=== PATIENT | male | born 1995 | race Caucasian/White ===

== ENCOUNTER 2018-04-09 15:07 | Observation (INO) | payer BC, MEDICAID ==
[2018-04-09] MEDS ORDERED: 0.9 % SODIUM CHLORIDE 1,000 ML BAG IV ONE (16:03)
[2018-04-09] MEDS ORDERED: IBUPROFEN 600 MG TABLET PO ONE (16:03)
--- NOTE | 2018-04-09 16:03 | Emergency Department Record ---
History of Present Illness - General Chief Complaint: Headache Migraine Stated Complaint: LOWER BACK PAIN,HEADACHE,VOMITING Time Seen by Provider: 04/09/18 15:44 Source: Patient, RN notes reviewed Mode of Arrival: Ambulatory - History of Present Illness Initial Comments: headache and fever and sore throat, denies a cough complaining of lower back pain . No dysuria , patient always has loose stools and one stool today and yesterday. patient with other relatives who have the same symtoms. MD Complaint: Headache Onset/Timin -: Hour(s) Onset Description: Sudden Severity scale (1-10): 9 Quality: Aching, Sharp Consistency: Constant Context: Close contacts with similar symptoms, Other Associated Symptoms: Fever, Nausea, Neck stiffness, Photophobia, Weakness Treatments Prior to Arrival: Acetaminophen Treatment Prior to Arrival Comment:: 325 - Related Data Home Medications Medication Instructions Recorded Confirmed Last Taken No Home Med [NO HOME MEDS] 04/09/18 04/09/18 Unknown Allergies Allergy/AdvReac Type Severity Reaction Status Date / Time No Known Drug Allergies Allergy Verified 04/09/18 15:37 Travel Screening - Travel/Exposure Within Last 30 Days Have you traveled within the last 30 days?: No - Travel/Exposure Within Last Year Have you traveled outside the [place] in the last year?: No - Additonal Travel Details Have you been exposed to anyone with a communicable illness?: No - Travel Symptoms Symptom Screening: None Review of Systems Reviewed: No additional complaints except as noted below Constitutional: Reports: As per HPI, Fever. Denies: Chills, Malaise, Night sweats, Weakness, Weight change Eyes: Reports: As per HPI. Denies: Eye discharge, Eye pain, Photophobia, Vision change ENT: Reports: As per HPI, Throat pain. Denies: Congestion, Dental pain, Ear pain, Epistaxis, Hearing loss Respiratory: Reports: As per HPI. Denies: Cough, Dyspnea, Hemoptysis, Stridor, Wheezes Cardiovascular: Reports: As per HPI. Denies: Arrhythmia, Chest pain, Dyspnea on exertion, Edema, Murmurs, Orthopnea, Palpitations, Paroxysmal nocturnal dyspnea, Rheumatic Fever, Syncope Endocrine: Reports: As per HPI. Denies: Fatigue, Heat or cold intolerance, Polydipsia, Polyuria Gastrointestinal: Reports: As per HPI. Denies: Abdominal pain, Constipation, Diarrhea, Hematemesis, Hematochezia, Melena, Nausea, Vomiting Genitourinary: Reports: As per HPI. Denies: Dysuria, Frequency, Hematuria, Incontinence, Retention, Testicular pain, Testicular mass, Urgency Musculoskeletal: Reports: As per HPI. Denies: Arthralgia, Back pain, Gout, Joint swelling, Myalgia, Neck pain Skin: Reports: As per HPI. Denies: Bruising, Change in color, Change in hair/ nails, Lesions, Pruritus, Rash Neurological: Reports: As per HPI. Denies: Abnormal gait, Confusion, Headache, Numbness, Paresthesias, Seizure, Tingling, Tremors, Vertigo, Weakness Psychiatric: Reports: As per HPI. Denies: Anxiety, Auditory hallucinations, Depression, Homicidal thoughts, Suicidal thoughts, Visual hallucinations Hematological/Lymphatic: Reports: As per HPI. Denies: Anemia, Blood Clots, Easy bleeding, Easy bruising, Swollen glands Past Medical History - SOCIAL HISTORY Smoking Status: Never smoker Alcohol Use: Rare Drug Use: None - RESPIRATORY Hx Respiratory Disorders: Yes Hx Asthma: Yes - CARDIOVASCULAR Hx Cardio Disorders: No - NEURO Hx Neuro Disorders: Yes Hx Dizziness: Yes Hx Headaches: Yes - GI Hx GI Disorders: Yes Hx Reflux: Yes - Hx Genitourinary Disorders: No - ENDOCRINE Hx Endocrine Disorders: No - MUSCULOSKELETAL Hx Musculoskeletal Disorders: No - PSYCH Hx Psych Problems: No - HEMATOLOGY/ONCOLOGY Hx Hematology/Oncology Disorders: No Family Medical History Any Significant Family History?: No Physical Exam - General General Appearance: Alert, Oriented x3, Cooperative, No acute distress - Head Head exam: Normal inspection - Eye Eye exam: Normal appearance, PERRL Pupils: Normal accommodation - ENT ENT exam: Normal exam, Mucous membranes moist, Normal external ear exam, Normal orophraynx, TM's normal bilaterally Ear exam: Normal external inspection. negative: External canal tenderness Nasal Exam: Normal inspection. negative: Discharge, Sinus tenderness Mouth exam: Normal external inspection, Tongue normal Teeth exam: Normal inspection. negative: Dental caries Throat exam: Normal inspection. negative: Tonsillar erythema, Tonsillar exudate - Neck Neck exam: Normal inspection, Full ROM. negative: Lymphadenopathy, Meningismus , Tenderness - Respiratory Respiratory exam: Normal lung sounds bilaterally. negative: Respiratory distress - Cardiovascular Cardiovascular Exam: Regular rate, Normal rhythm, Normal heart sounds - GI/Abdominal GI/Abdominal exam: Soft, Normal bowel sounds. negative: Tenderness - Rectal Rectal exam: Deferred - exam: Deferred - Extremities Extremities exam: Normal inspection, Full ROM, Normal capillary refill. negative: Tenderness - Back Back exam: Reports: Normal inspection, Full ROM. Denies: Muscle spasm, Rash noted, Tenderness - Neurological Neurological exam: Alert, Normal gait, Oriented X3, Reflexes normal - Psychiatric Psychiatric exam: Normal affect, Normal mood - Skin Skin exam: Dry, Intact, Normal color, Warm Course Vital Signs 04/09/18 15:25 Temperature 101.1 F H - Reevaluation(s) Reevaluation #1: Discussed case with Sara and will admit to Dr. Shirley service 04/09/18 18:33 Medical Decision Making - Data Complexity MDM Data: Labs Ordered and/or Reviewed, X-Ray Ordered and/or Reviewed ( infiltrate left lower lobe slight) - Lab Data Result diagrams: 04/09/18 16:15 04/09/18 16:15 Disposition Clinical Impression: Pneumonia Qualifiers: Pneumonia type: due to unspecified organism Laterality: left Lung location: lower lobe of lung Qualified Code(s): J18.1 - Lobar pneumonia, unspecified organism Decision to Admit: Admit from ER Condition: (1) Good Forms: Patient Portal Access Time of Disposition: 18:33 Quality - Quality Measures Quality Measures: N/A - Blood Pressure Screening Does Patient Have Any of the Following: No Blood Pressure Classification: Pre-Hypertensive BP Reading Systolic Measurement: 127 Diastolic Measurement: 80 Screening for High Blood Pressure: < Pre-Hypertensive BP, F/U Documented > [ [id number]] Pre-Hypertensive Follow-up Interventions: Referral to alternative/primary care provider.
[2018-04-09 16:28] LABS: HEMATOCRIT 46.6 % (42.0-52.0); HEMOGLOBIN 16.4 gm/dl (14.0-18.0); MEAN CELL VOLUME 79.3 fl (81-97); MEAN CORPUSCULAR HGB CONC 35.2 g/dl (32-36); MEAN PLATELET VOLUME 11.7 fl (7.4-10.4); PLATELET COUNT 144 K/uL (130-400); RED BLOOD COUNT 5.88 M/uL (4.40-5.70); RED CELL DISTRIBUTION WIDTH 12.9 % (11.5-14.5); WHITE BLOOD COUNT W/O DIFF 8.6 K/uL (4.2-12.2)
[2018-04-09 16:31] LABS: MEAN CORPUSCULAR HEMOGLOBIN 27.8 pg (27-33)
[2018-04-09 16:38] LABS: BLOOD UREA NITROGEN 11 mg/dL (6-20); CREATININE 1.2 mg/dL (0.7-1.2); EST GLOMERULAR FILTRATION RATE > 60 mL/min
[2018-04-09 16:39] LABS: TOTAL PROTEIN 7.9 g/dL (6.6-8.7)
[2018-04-09 16:41] LABS: GLUCOSE,RANDOM 127 mg/dL (74-109)
[2018-04-09 16:43] LABS: ALT/SGPT 25 U/L (<41)
[2018-04-09 16:44] LABS: ALKALINE PHOSPHATASE 82 U/L (40-129); AST/SGOT 28 U/L (10.0-50.0)
[2018-04-09 16:45] LABS: BILIRUBIN,DIRECT < 0.2 mg/dL (0-0.3)
[2018-04-09 16:50] LABS: URINE APPEARANCE CLEAR; URINE BILIRUBIN NEGATIVE (NEGATIVE); URINE BLOOD NEGATIVE (NEGATIVE); URINE COLOR YELLOW; URINE GLUCOSE (UA) NEGATIVE (NEGATIVE); URINE KETONE 15 mg/dL (NEGATIVE); URINE LEUKOCYTE ESTERASE NEGATIVE (NEGATIVE); URINE NITRITE NEGATIVE (NEGATIVE); URINE PROTEIN NEGATIVE (NEGATIVE)
[2018-04-09] MEDS ORDERED: CEFTRIAXONE SODIUM 1 GM in 0.9 % SODIUM CHLORIDE 100ML 100 ML IVPB ONE (18:18)
[2018-04-09] MEDS ORDERED: IBUPROFEN 600 MG TABLET PO PRN (19:59)
[2018-04-09] MEDS ORDERED: ACETAMINOPHEN 500 MG TABLET PO PRN (19:59)
[2018-04-09] MEDS ORDERED: CEFTRIAXONE SODIUM 1 GM in 0.9 % SODIUM CHLORIDE 100ML 100 ML IVPB SCH (19:59)
[2018-04-09] MEDS: AZITHROMYCIN 500 MG TABLET PO SCH (20:31)
[2018-04-09] MEDS: 0.9 % SODIUM CHLORIDE 1000ML 1,000 ML IV PRN (20:32)
[2018-04-09] MEDS ORDERED: CALCIUM CARBONATE 500 MG TAB.CHEW PO PRN (20:34)
[2018-04-09] MEDS ORDERED: ONDANSETRON HCL IV 4 MG/2 ML VIAL IVP PRN (20:34)
[2018-04-09] MEDS ORDERED: MELATONIN 5 MG TABLET PO SCH (22:00)
[2018-04-10] MEDS: 0.9 % SODIUM CHLORIDE 1000ML 1,000 ML IV PRN ×2 (03:51→12:09)
[2018-04-10 06:16] LABS: BASO % 0.1 % (0-6); EOS % 0.1 % (0-6); HEMATOCRIT 41.9 % (42.0-52.0); HEMOGLOBIN 14.3 gm/dl (14.0-18.0); LYMPH % 3.3 % (16-45); MEAN CELL VOLUME 80.3 fl (81-97); MEAN CORPUSCULAR HEMOGLOBIN 27.4 pg (27-33); MEAN CORPUSCULAR HGB CONC 34.1 g/dl (32-36); MEAN PLATELET VOLUME 11.8 fl (7.4-10.4); MONO % 7.2 % (0-9); PLATELET COUNT 111 K/uL (130-400); RED BLOOD COUNT 5.22 M/uL (4.40-5.70); RED CELL DISTRIBUTION WIDTH 13.1 % (11.5-14.5); WHITE BLOOD COUNT W/O DIFF 11.5 K/uL (4.2-12.2)
[2018-04-10 06:46] LABS: BLOOD UREA NITROGEN 18 mg/dL (6-20); CREATININE 1.3 mg/dL (0.7-1.2); EST GLOMERULAR FILTRATION RATE > 60 mL/min; GLUCOSE,RANDOM 149 mg/dL (74-109)
--- NOTE | 2018-04-10 07:10 | RADIOLOGY REPORT ---
EXAM: CHEST, TWO VIEWS HISTORY: DIFFICULTY BREATHING, FEVER. TECHNIQUE: Frontal and lateral views of the chest were performed. FINDINGS: The heart is normal. There is a subtle infiltrate in the left lower lobe. No pleural effusion. The osseous structures are normal. IMPRESSION: SUBTLE INFILTRATE LEFT LOWER LOBE. JOB NUMBER: [id number] [facility]
--- NOTE | 2018-04-10 07:14 | CT SCAN REPORT ---
EXAM: CT OF THE BRAIN WITHOUT CONTRAST HISTORY: HEADACHE AND VOMITING. TECHNIQUE: Sequential axial images were obtained from the foramen magnum to the vertex without contrast administration. FINDINGS: No large territorial infarct, hemorrhage, mass effect, or midline shift. No extraaxial fluid collection. The orbits, paranasal sinuses, and mastoid air cells are normal. No depressed skull fracture. IMPRESSION: NO ACUTE INTRACRANIAL ABNORMALITY IS APPRECIATED. JOB NUMBER: [id number] [facility]
[2018-04-10] MEDS ORDERED: CEFTRIAXONE 1GM/50ML BAG 1 GM/50 ML BAG IVPB SCH (08:00)
[2018-04-10] MEDS ORDERED: 0.9 % SODIUM CHLORIDE 1000ML 1,000 ML IV ONE (09:35)
[2018-04-10] MEDS ORDERED: ONDANSETRON 4 MG ODT TABLET SL PRN (09:43)
[2018-04-10] MEDS: AZITHROMYCIN 500 MG TABLET PO SCH (10:00)
[2018-04-10] MEDS ORDERED: CALCIUM CARBONATE 500 MG TAB.CHEW PO SCH (10:00)
[2018-04-10] MEDS ORDERED: ENOXAPARIN 40 MG/0.4 ML SYR SQ SCH (10:00)
--- NOTE | 2018-04-10 10:13 | History & Physical ---
History of Present Illness - Date of Service Date of Service for History & Physical: 04/10/18 - History of Present Illness Admitting Diagnosis: pneumonia History of Present Illness: Linus Gonzalez is a 23 y.o. male who presented to the ED with on 2017 with c/o headache, fever, lower back pain and sore throat that started the day before. Denied cough, priyank or dysuria. CXR in ED showed subtle infiltrate to LLL. Preliminary blood cultures x [address] negative.Reported that he always has loose stools, last BM on 04/09/2018. Pt reports that he has 2 relatives, whom he was with this past Saturday, who have been hospitalized with the same symptoms. Negative PMHx. Pt denied tobacco or recreational drug use. 04/10/2018 1000 Pt reports that he is feeling a better, headache and back pain have subsided. Denies nausea after receiving Zofran and was able to eat [employer] this morning. Pt questioning when he will be able to discharge. HR elevated in 130s with BP 90s/60s. Labs: Creatinine 1.3, Calcium 8.1, WBC 11.5. 0.9% 1L bolus x 1 to be given. IV medications changed to oral route. TUMS ordered for decreased Calcium level. Discharge will be evaluated later this afternoon if HR has returned to baseline and pt able to tolerate oral medications. Travel Screening - Travel/Exposure Within Last 30 Days Have you traveled within the last 30 days?: No - Travel/Exposure Within Last Year Have you traveled outside the [place] in the last year?: No - Additonal Travel Details Have you been exposed to anyone with a communicable illness?: No - Travel Symptoms Symptom Screening: None Review of Systems Constitutional: Reports: As per HPI. Denies: Chills, Malaise, Night sweats, Weakness, Weight change Eyes: Reports: As per HPI. Denies: Eye discharge, Eye pain, Photophobia, Vision change ENT: Reports: As per HPI, Throat pain. Denies: Congestion, Dental pain, Ear pain, Epistaxis, Hearing loss Respiratory: Reports: As per HPI. Denies: Cough, Dyspnea, Hemoptysis, Stridor, Wheezes Cardiovascular: Reports: As per HPI. Denies: Arrhythmia, Chest pain, Dyspnea on exertion, Edema, Murmurs, Orthopnea, Palpitations, Paroxysmal nocturnal dyspnea, Rheumatic Fever, Syncope Endocrine: Reports: As per HPI, Fatigue. Denies: Heat or cold intolerance, Polydipsia, Polyuria Gastrointestinal: Reports: As per HPI, Nausea ("Nauseated prior to receiving Zofran"). Denies: Abdominal pain, Constipation, Diarrhea, Hematemesis, Hematochezia, Melena, Vomiting Genitourinary: Reports: As per HPI. Denies: Dysuria, Frequency, Hematuria, Incontinence, Retention, Testicular pain, Testicular mass, Urgency Musculoskeletal: Reports: As per HPI. Denies: Arthralgia, Back pain, Gout, Joint swelling, Myalgia, Neck pain Skin: Reports: As per HPI. Denies: Bruising, Change in color, Change in hair/ nails, Lesions, Pruritus, Rash Neurological: Reports: As per HPI. Denies: Abnormal gait, Confusion, Headache, Numbness, Paresthesias, Seizure, Tingling, Tremors, Vertigo, Weakness Psychiatric: Reports: As per HPI. Denies: Anxiety, Auditory hallucinations, Depression, Homicidal thoughts, Suicidal thoughts, Visual hallucinations Hematological/Lymphatic: Reports: As per HPI. Denies: Anemia, Blood Clots, Easy bleeding, Easy bruising, Swollen glands Past Medical History - SOCIAL HISTORY Smoking Status: Never smoker Alcohol Use: Rare Drug Use: None - RESPIRATORY Hx Respiratory Disorders: Yes Hx Asthma: Yes - CARDIOVASCULAR Hx Cardio Disorders: No - NEURO Hx Neuro Disorders: Yes Hx Dizziness: Yes Hx Headaches: Yes - GI Hx GI Disorders: Yes Hx Reflux: Yes - Hx Genitourinary Disorders: No - ENDOCRINE Hx Endocrine Disorders: No - MUSCULOSKELETAL Hx Musculoskeletal Disorders: No - PSYCH Hx Psych Problems: No - HEMATOLOGY/ONCOLOGY Hx Hematology/Oncology Disorders: No Family Medical History Any Significant Family History?: No H&P Meds/Allergies - Allergies Allergies: Allergies Allergy/AdvReac Type Severity Reaction Status Date / Time No Known Drug Allergies Allergy Verified 04/09/18 15:37 - Home Medications Home Medications Medication Instructions Recorded Confirmed Last Taken No Home Med [NO HOME MEDS] 04/09/18 04/09/18 Unknown - Active Medications Active Medications: Current Medications Acetaminophen (Tylenol 500mg Tab) 1,000 mg PO Q6H PRN PRN Reason: ANALGESIA Azithromycin (Zithromax) 500 mg PO DAILY [facility] Last Admin: 04/09/18 20:31 Dose: 500 mg Calcium Carbonate/Glycine (Tums) 500 mg PO BID [facility] Cefdinir (Cefdinir) 300 mg PO BID [facility] Stop: 04/14/18 21:01 Enoxaparin Sodium (Lovenox) 40 mg SQ DAILY [facility] Sodium Chloride () 1,000 mls @ 125 mls/hr IV .Q8H PRN PRN Reason: LARGE VOLUME IV Last Admin: 04/10/18 03:51 Dose: 125 mls/hr Sodium Chloride () 1,000 mls @ 500 mls/hr IV .Q2H ONE Stop: 04/10/18 11:34 Ibuprofen (Motrin 600mg) 600 mg PO Q6H PRN PRN Reason: ANALGESIA Last Admin: 04/10/18 08:04 Dose: 600 mg Melatonin (Melatonin) 5 mg PO QHS [facility] Last Admin: 04/09/18 22:35 Dose: 5 mg Ondansetron HCl (Zofran Odt) 4 mg SL Q8H PRN PRN Reason: NAUSEA/VOMITING Physical Exam - Vital Signs Vital Signs: Vital Signs - Last 24 Hrs Temp Pulse Pulse Pulse Resp BP BP 04/10/18 09:00 136 H 18 04/10/18 04:00 97 F L 105 H 18 97/69 04/10/18 02:00 101 H 18 98/59 04/10/18 00:00 98.2 F 124 H 18 92/51 04/09/18 20:00 97.2 F L 105 H 18 122/74 04/09/18 19:49 118 H 16 04/09/18 19:22 97.9 F 102 H 16 127/87 04/09/18 18:20 98.5 F 04/09/18 16:16 118 H 20 127/80 04/09/18 15:25 101.1 F H Pulse Ox 04/10/18 09:00 04/10/18 04:00 98 04/10/18 02:00 97 04/10/18 00:00 98 04/09/18 20:00 97 04/09/18 19:49 04/09/18 19:22 100 04/09/18 18:20 04/09/18 16:16 04/09/18 15:25 - General General Appearance: Alert, Oriented x3, Cooperative, No acute distress - Head Head exam: Normal inspection - Eye Eye exam: Normal appearance, PERRL Pupils: Normal accommodation - ENT ENT exam: Mucous membranes moist Nasal Exam: negative: Discharge, Sinus tenderness Mouth exam: Normal external inspection Teeth exam: negative: Dental caries - Neck Neck exam: Normal inspection, Full ROM. negative: Lymphadenopathy, Meningismus , Tenderness - Respiratory Respiratory exam: Normal lung sounds bilaterally. negative: Respiratory distress - Cardiovascular Cardiovascular Exam: Regular rate, Normal rhythm, Normal heart sounds - GI/Abdominal GI/Abdominal exam: Soft, Normal bowel sounds. negative: Tenderness - Rectal Rectal exam: Deferred - exam: Deferred - Extremities Extremities exam: Normal inspection, Full ROM, Normal capillary refill. negative: Tenderness - Back Back exam: Reports: Normal inspection, Full ROM. Denies: Muscle spasm, Rash noted, Tenderness - Neurological Neurological exam: Alert, Oriented X3 - Psychiatric Psychiatric exam: Normal affect, Normal mood - Skin Skin exam: Dry, Intact, Normal color, Warm Results - Labs Result Diagrams: 04/10/18 06:10 04/10/18 06:10 Labs Last 24 Hours: Laboratory Results - last 24 hr 04/09/18 04/09/18 04/09/18 16:15 16:15 16:20 WBC 8.6 RBC 5.88 H Hgb 16.4 Hct 46.6 MCV 79.3 L MCH 27.8 MCHC 35.2 RDW 12.9 Plt Count 144 MPV 11.7 H Neutrophils % 82.0 H Band Neutrophils % 6.0 H Lymphocytes % Monocytes % Eosinophils % Not Reportable Basophils % Not Reportable Lymphocytes 6.0 L Monocytes 6.0 Basophils Eosinophil Count Sodium 136 Potassium 3.6 Chloride 93 L Carbon Dioxide 25.0 Anion Gap 18.0 H BUN 11 Creatinine 1.2 Estimated GFR > 60 Random Glucose 127 H Calcium 9.6 Total Bilirubin 1.00 Direct Bilirubin < 0.2 AST 28 ALT 25 Alkaline Phosphatase 82 Total Protein 7.9 Albumin 5.0 Urine Color Urine Appearance Urine pH Ur Specific [place] Urine Protein Urine Glucose (UA) Urine Ketones Urine Blood Urine Nitrite Urine Bilirubin Urine Urobilinogen Ur Leukocyte Esterase Group A Strep Screen Negative 04/09/18 04/10/18 04/10/18 16:38 06:10 06:10 WBC 11.5 RBC 5.22 Hgb 14.3 Hct 41.9 L MCV 80.3 L MCH 27.4 MCHC 34.1 RDW 13.1 Plt Count 111 L MPV 11.8 H Neutrophils % 87.0 H Band Neutrophils % 2.0 Lymphocytes % 3.3 L Monocytes % 7.2 Eosinophils % 0.1 Basophils % 0.1 Lymphocytes 3.0 L Monocytes 8.0 Basophils 0.0 Eosinophil Count 0.0 Sodium 140 Potassium 4.1 Chloride 103 Carbon Dioxide 22.0 Anion Gap 15.0 BUN 18 Creatinine 1.3 H Estimated GFR > 60 Random Glucose 149 H Calcium 8.1 L Total Bilirubin Direct Bilirubin AST ALT Alkaline Phosphatase Total Protein Albumin Urine Color Yellow Urine Appearance Clear Urine pH 8.0 Ur Specific [place] 1.020 Urine Protein Negative Urine Glucose (UA) Negative Urine Ketones 15 mg/dl H Urine Blood Negative Urine Nitrite Negative Urine Bilirubin Negative Urine Urobilinogen 2.0 H Ur Leukocyte Esterase Negative Group A Strep Screen - Imaging and Cardiology CT scan - head Status: Pending VTE H&P Assessment - Risk for VTE Risk for VTE: Yes Risk Level: Low Risk Assessment Date: 04/10/18 Risk Assessment Time: 10:29 VTE Orders Placed or Will Be Placed: Yes Plan - Detailed Diagnosis and Plan (1) Pneumonia Current Visit: Yes Status: Acute Qualifiers: Pneumonia type: due to unspecified organism Laterality: left Lung location: lower lobe of lung Qualified Code(s): J18.1 - Lobar pneumonia, unspecified organism Base Code: J18.9 - PNEUMONIA, UNSPECIFIED ORGANISM Comment: -CXR 04/09/2018 showed subtle LLL infiltrate -Neg. Blood Cultures x 2 (preliminary) -D/C IV Ceftriaxone, change to oral route -Ordered Cefdinir PO 300mg BID x 4 days -Continue Azithromycin PO -0.9% 1L bolus x 1 for elevated HR and creatinine (2) Nausea Current Visit: Yes Status: Acute Base Code: R11.0 - NAUSEA Comment: -D/C IV Zofran -Ordered Zofran Odt 4mg SL q. 8 hours PRN -Ordered TUMS 500mg PO BID (also for Ca level of 8.1) (3) DVT prophylaxis Current Visit: Yes Status: Acute Base Code: VMT3805 - Comment: -Continue Lovenox 40mg SQ daily until D/C (4) Full code status Current Visit: Yes Status: Acute Base Code: Z78.9 - OTHER SPECIFIED HEALTH STATUS Comment: -Pt is full code
--- NOTE | 2018-04-10 13:41 | Discharge Summary ---
Providers Discharge Summary Date: 04/10/18 Date of admission: 04/09/18 19:04 Expected Date of Discharge: 04/10/18 Attending physician: GLADYS AREVALO Primary care physician: ROYAL MOE M.D. Physical Exam - Vital Signs Vital Signs: Vital Signs - Last 24 Hrs Temp Pulse Pulse Pulse Resp BP BP 04/10/18 09:46 97.9 F 95 H 18 136/67 04/10/18 09:00 136 H 18 04/10/18 04:00 97 F L 105 H 18 97/69 04/10/18 02:00 101 H 18 98/59 04/10/18 00:00 98.2 F 124 H 18 92/51 04/09/18 20:00 97.2 F L 105 H 18 122/74 04/09/18 19:49 118 H 16 04/09/18 19:22 97.9 F 102 H 16 127/87 04/09/18 18:20 98.5 F 04/09/18 16:16 118 H 20 127/80 04/09/18 15:25 101.1 F H Pulse Ox 04/10/18 09:46 98 04/10/18 09:00 04/10/18 04:00 98 04/10/18 02:00 97 04/10/18 00:00 98 04/09/18 20:00 97 04/09/18 19:49 04/09/18 19:22 100 04/09/18 18:20 04/09/18 16:16 04/09/18 15:25 - General General Appearance: Alert, Oriented x3, Cooperative, No acute distress - Head Head exam: Normal inspection - Eye Eye exam: Normal appearance, PERRL Pupils: Normal accommodation - ENT ENT exam: Mucous membranes moist Ear exam: Normal external inspection. negative: External canal tenderness Nasal Exam: negative: Discharge, Sinus tenderness Mouth exam: Normal external inspection Teeth exam: negative: Dental caries Throat exam: Normal inspection. negative: Tonsillar erythema, Tonsillar exudate - Neck Neck exam: Normal inspection, Full ROM. negative: Lymphadenopathy, Meningismus , Tenderness - Respiratory Respiratory exam: Normal lung sounds bilaterally. negative: Respiratory distress - Cardiovascular Cardiovascular Exam: Regular rate, Normal rhythm, Normal heart sounds - GI/Abdominal GI/Abdominal exam: Soft, Normal bowel sounds. negative: Tenderness - Rectal Rectal exam: Deferred - exam: Deferred - Extremities Extremities exam: Normal inspection, Full ROM, Normal capillary refill. negative: Tenderness - Back Back exam: Reports: Normal inspection, Full ROM. Denies: Muscle spasm, Rash noted, Tenderness - Neurological Neurological exam: Alert, Oriented X3 - Psychiatric Psychiatric exam: Normal affect, Normal mood - Skin Skin exam: Dry, Intact, Normal color, Warm Hospitalization - Hospitalization Admission Diagnosis: pneumonia - Problem List/Discharge Diagnosis (1) Pneumonia Current Visit: Yes Status: Acute Discharge Diagnosis: Pneumonia type: due to unspecified organism Laterality: left Lung location: lower lobe of lung Qualified Code(s): J18.1 - Lobar pneumonia, unspecified organism Base Code: J18.9 - PNEUMONIA, UNSPECIFIED ORGANISM Comment: -CXR 04/09/2018 showed subtle LLL infiltrate -Neg. Blood Cultures x 2 (preliminary) -D/C IV Ceftriaxone, change to oral route -Ordered Cefdinir PO 300mg BID x 4 days -Continue Azithromycin PO -0.9% 1L bolus x 1 for elevated HR and creatinine (2) Nausea Current Visit: Yes Status: Acute Base Code: R11.0 - NAUSEA Comment: -D/C IV Zofran -Ordered Zofran Odt 4mg SL q. 8 hours PRN -Ordered TUMS 500mg PO BID (also for Ca level of 8.1) (3) DVT prophylaxis Current Visit: Yes Status: Acute Base Code: [id number] - Comment: -Continue Lovenox 40mg SQ daily until D/C (4) Full code status Current Visit: Yes Status: Acute Base Code: Z78.9 - OTHER SPECIFIED HEALTH STATUS Comment: -Pt is full code - Hospitalization Course Disposition: Home, Self-Care Hospital Course: Linus Gonzalez is a 23 y.o. male who presented to the ED with on 2017 with c/o headache, fever, lower back pain and sore throat that started the day before. Denied cough, priyank or dysuria. CXR in ED showed subtle infiltrate to LLL. Preliminary blood cultures x [address] negative.Reported that he always has loose stools, last BM on 04/09/2018. Pt reports that he has 2 relatives, whom he was with this past Saturday, who have been hospitalized with the same symptoms. Negative PMHx. Pt denied tobacco or recreational drug use. 04/10/2018 1000 Pt reports that he is feeling a better, headache and back pain have subsided. Denies nausea after receiving Zofran and was able to eat [employer] this morning. Pt questioning when he will be able to discharge. HR elevated in 130s with BP 90s/60s. Labs: Creatinine 1.3, Calcium 8.1, WBC 11.5. 0.9% 1L bolus x 1 to be given. IV medications changed to oral route. TUMS ordered for decreased Calcium level. Discharge will be evaluated later this afternoon if HR has returned to baseline and pt able to tolerate oral medications. 04/10/2018 1330 HR decreased to 88 after fluid bolus. He continues to deny nausea and is tolerating regular diet. Will discharge home with oral antibiotics. Pt to f/u with PCP in 3-5 days. Procedures: Imaging and X-Rays 04/09/18 16:04 CHEST 2 VIEWS [RAD] Stat 04/09/18 16:51 HEAD WO CONTRAST [CT] Stat Abnormal Labs: Abnormal Lab Results 04/09/18 04/09/18 04/09/18 Range/Units 16:15 16:15 16:38 RBC 5.88 H (4.40-5.70) M/uL Hct (42.0-52.0) % MCV 79.3 L (81-97) fl Plt Count (130-400) K/uL MPV 11.7 H (7.4-10.4) fl Neutrophils % 82.0 H (47-80) % Band Neutrophils % 6.0 H (0-5) % Lymphocytes % (16-45) % Lymphocytes 6.0 L (16-45) % Chloride 93 L (98-107) mmol/L Anion Gap 18.0 H (7-16) Creatinine (0.7-1.2) mg/dL Random Glucose 127 H (74-109) mg/dL Calcium (8.6-10.0) mg/dL Urine Ketones 15 mg/dl H (NEGATIVE) Urine Urobilinogen 2.0 H (0.20 - 1.00) E.U./dL 04/10/18 04/10/18 Range/Units 06:10 06:10 RBC (4.40-5.70) M/uL Hct 41.9 L (42.0-52.0) % MCV 80.3 L (81-97) fl Plt Count 111 L (130-400) K/uL MPV 11.8 H (7.4-10.4) fl Neutrophils % 87.0 H (47-80) % Band Neutrophils % (0-5) % Lymphocytes % 3.3 L (16-45) % Lymphocytes 3.0 L (16-45) % Chloride (98-107) mmol/L Anion Gap (7-16) Creatinine 1.3 H (0.7-1.2) mg/dL Random Glucose 149 H (74-109) mg/dL Calcium 8.1 L (8.6-10.0) mg/dL Urine Ketones (NEGATIVE) Urine Urobilinogen (0.20 - 1.00) E.U./dL Condition at Discharge: (2) Stable VTE Discharge VTE Reason For No Overlap Therapy: Not Indicated (Pt mobility not impaired) Discharge Medications - Discharge Medications Prescriptions: Azithromycin [Zithromax] 250 mg PO DAILY #6 tab Cefdinir 300 mg PO BID #8 capsule Ondansetron [Zofran Odt] 4 mg SL Q8H PRN #14 tab.rapdis PRN Reason: Nausea/Vomiting Home Medications: Ambulatory Orders Azithromycin [Zithromax] 250 mg PO DAILY #6 tab 04/10/18 [Last Taken Unknown] Cefdinir 300 mg PO BID #8 capsule 04/10/18 [Last Taken Unknown] Ondansetron [Zofran Odt] 4 mg SL Q8H PRN #14 tab.rapdis 04/10/18 [Last Taken Unknown] Discharge Plan - Discharge Instructions Activity at Discharge: Resume Usual Activities As Tolerated Diet at Discharge: Regular Diet Additional Instructions: Start Azithromycin tonight at 9pm, take 2 tablets. Start Cefdinir tonight at 9pm, take 1 tablet Take both medications with food to avoid upset stomach Zofran for nausea, take 1 tablet every 8 hours as needed Follow up with Primary Care Provider in 3-5 days Call or return to ED if worsening symptoms, shortness of breath or any chest pain Quality Measures - Quality Measures Quality Measures: Documentation of Current Medications in Medical Record, Screening for High Blood Pressure and F/U Documented - Current Medications Quality Measure: Measure #130: Documentation of Current Medications Documentation of Current Medications: <Current Medications Documented/Reviewed> [[id number]] - Blood Pressure Screening Quality Measure: Screening for High Blood Pressure and Follow-Up Documented Does Patient Have Any of the Following: No Blood Pressure Classification: Pre-Hypertensive BP Reading Systolic Measurement: 127 Diastolic Measurement: 87 Screening for High Blood Pressure: < Pre-Hypertensive BP, F/U Documented > [ [id number]] Pre-Hypertensive Follow-up Interventions: Follow-up with rescreen every year. - Elder Abuse Suspicion Index EASI Reference Information: Diya NUNEZ, Guy C, Desmond Tolentino, Ambika Timmons.Development and validation of a tool to assist physicians identification of elder abuse: The Elder Abuse Suspicion Index (EASI ). Journal of Elder Abuse and Neglect, 2008; 20 (3): 276-300.
[2018-04-10] MEDS ORDERED: CEFDINIR 300 MG CAPSULE PO SCH (22:00)
== END 2018-04-10 12:35 | disposition home or self-care (01) ==
LOC: ER 15:07 → MEDSURG 19:04 → INTOOBSV 19:04
PROVIDERS: ADMIT Internal Medicine; ATTEND Internal Medicine
DX: J18.1 Lobar pneumonia, unspecified organism (principal); R51 Headache; R50.9 Fever, unspecified; J02.9 Acute pharyngitis, unspecified; R11.0 Nausea; R11.10 Vomiting, unspecified; J45.909 Unspecified asthma, uncomplicated; K21.9 Gastro-esophageal reflux disease without esophagitis
CPT/HCPCS: 99285 ×2; 96374; 80076; 80048 ×2; 81003; 87880; 85027 ×2; 71046; 70450; G0378 ×2; J2405; J3490; J0696; 99220; J1650; J7030